=== PATIENT | female | born 1965 | race Hispanic/Latino ===

== ENCOUNTER 2019-02-03 16:18 | Observation (INO) | payer SELFPAY ==
[2019-02-03 16:46] LABS: Bilirubin Negative (Negative); Blood, Urine Negative (Negative); Clarity Clear (Clear); Glucose, Urine (Dipstick) Negative (Negative); Leukocyte Small (Negative); Nitrite Negative (Negative); Protein, Urine (Dipstick) 100 mg/dL (Neg-Trace); Urobilinogen 0.2 mg/dL (0.2-1.0)
[2019-02-03 16:55] LABS: Bacteria/HPF Rare-Few HPF (None Seen); Hyaline Casts/LPF NONE SEEN LPF (0-3 Hyaline); RBC/HPF None Seen HPF (0-3)
[2019-02-03 17:02] LABS: Mean Corpuscular HGB CONC 33.3 g/dL (32.0-36.0); Mean Corpuscular Hemoglobin 27.2 pg (27.0-31.0); Mean Corpuscular Volume 81.6 fL (78.0-98.0); Mean Platelet Volume 7.8 fL (7.4-10.4); Platelet Count 340 thou/uL (130-400); RBC Distribution Width 12.3 % (11.5-14.5); Red Blood Cell (RBC) Count 4.78 mill/uL (4.20-5.40); White Blood Cell (WBC) Count 16.5 thou/uL (4.8-10.8)
[2019-02-03] MEDS ORDERED: Ondansetron PF 4 MG/2 ML Vial ONE (17:09)
[2019-02-03] MEDS ORDERED: Morphine 4 MG/ML VIAL ONE (17:09)
[2019-02-03 17:22] LABS: ALT (SGPT) 24 U/L (8-55); AST (SGOT) 24 U/L (5-34); Albumin 4.3 g/dL (3.5-5.0); Alkaline Phosphatase 211 U/L (40-150); Anion Gap 13 mmol/L (10-20); BUN (Urea Nitrogen) 14 mg/dL (9.8-20.1); Band 3 % (5-11); Bilirubin, Total 0.4 mg/dL (0.2-1.2); Calc. Creatinine Clearance 0 mL/min (70-130); Calcium 10.5 mg/dL (7.8-10.44); Carbon Dioxide 25 mmol/L (22-29); Chloride 103 mmol/L (98-107); Eosinophils 1 % (0-10); Estimated GFR-MDRD Greater than 90; Globulin 4.7 g/dL (2.4-3.5); Glucose 122 mg/dL (70-105); Lymphocytes 63 % (21-51); MDiff Complete? YES; Monocytes 4 % (0-10); Neutrophil 26 % (42-75); Platelet Morphology Comment Appears Adequate; Potassium 4.3 mmol/L (3.5-5.1); Reactive Lymphocytes 3 % (0-10); Sodium 137 mmol/L (136-145)
--- NOTE | 2019-02-03 17:48 | CT ---
CT ABDOMEN AND PELVIS WITHOUT CONTRAST: 02/03/19 COMPARISON: Ultrasound of the gallbladder 12/29/18. HISTORY: Abdominal pain for four days. TECHNIQUE: Multiple contiguous axial images were obtained in a CT of the abdomen and pelvis without contrast. Co delfina reformats were performed. FINDINGS: The gallbladder is distended and there is apparent gallbladder wall thickening. No obvious stranding changes are seen adjacent to the gallbladder. The liver, kidneys, adrenal glands, spleen, and pancrea s are unremarkable, although evaluation is limited without IV contrast. There is a 3.3 cm right adnexal mass containing a calcification and fat. This likely represents a mat ure cystic teratoma. The left ovary and uterus are unremarkable. There is scattered diverticula in th e colon. The small bowel is unremarkable. The appendix is normal. No abdominal or pelvic lymphadenopa thy are seen. Degenerative changes are seen in the spine. The visualized inferior thorax and abdominal wall soft ti ssues are unremarkable. IMPRESSION: 1. Distended gallbladder. This could be secondary to acute cholecystitis given the history of ga llstones. Correlate with LFTs. 2. 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 3. Diverticulosis. POS: C
--- NOTE | 2019-02-03 18:06 | ULT ---
RIGHT UPPER QUADRANT ABDOMINAL ULTRASOUND 02/03/19 COMPARISON: CT abdomen/pelvis 02/03/19 and ultrasound 12/29/18. HISTORY: Abdominal pain. History of gallstones. Evaluate for acute cholecystitis. TECHNIQUE: Multiplanar salazar scale and color Doppler images were obtained in a right upper quadrant abdominal ult rasound. FINDINGS: The gallbladder is distended and filled with multiple stones. No pericholecystic fluid is seen. The g allbladder wall is upper limits of normal on this examination. The common bile duct is normal measuri ng 3 mm. The visualized portions of the pancreas are unremarkable. The right kidney is normal in echogenicity without hydronephrosis or calculus and measures 11.7 cm in length. IMPRESSION: Cholelithiasis with distended gallbladder. POS: [facility]
[2019-02-03] MEDS ORDERED: Piperacillin/Tazobactam 4.5 GM VIAL ONE (18:50)
[2019-02-03] MEDS ORDERED: Piperacillin/Tazobactam 4.5 GM in Sodium Chloride 0.9% 100 ML IVPB SCH (19:15)
[2019-02-03 19:54] LABS: PTT 28.2 SEC (22.9-36.1); Prothrombin Time 13.1 SEC (12.0-14.7)
[2019-02-03] MEDS ORDERED: Ondansetron ODT 4 MG TAB SL PRN (20:49)
[2019-02-03] MEDS ORDERED: Ondansetron PF 4 MG/2 ML Vial IVP PRN (20:49)
[2019-02-03] MEDS ORDERED: HYDROcodone/Acetaminophen 5/325 mg Tablet PO PRN ×2 (20:49)
[2019-02-03] MEDS ORDERED: Morphine 4 MG/ML VIAL SLOW IVP PRN (20:51)
[2019-02-03 21:22] VITALS: BMI 37.9
[2019-02-03] MEDS: Lactated Ringer's 1,000 ML IV SCH (21:33)
[2019-02-04] MEDS ORDERED: Piperacillin/Tazobactam 4.5 GM in Sodium Chloride 0.9% 100 ML IVPB SCH (04:00)
[2019-02-04] MEDS: Lactated Ringer's 1,000 ML IV SCH (04:35)
[2019-02-04 04:58] LABS: #Basophils 0.1 thou/uL (0.0-0.2); #Eosinphils 0.1 thou/uL (0.0-0.7); #Lymphocytes 5.2 thou/uL (1.20-3.40); #Monocytes 0.8 thou/uL (0.11-0.59); #Neutrophils 6.7 thou/uL (1.40-6.50); %Basophils 0.8 % (0.0-1.0); %Eosinophils 0.8 % (0.0-10.0); %Lymphocytes 40.7 % (21.0-51.0); %Monocytes 5.9 % (0.0-10.0); %Neutrophils 51.8 % (42.0-75.0); Hemoglobin 11.1 g/dL (12.0-16.0); Mean Corpuscular HGB CONC 33.3 g/dL (32.0-36.0); Mean Corpuscular Hemoglobin 27.7 pg (27.0-31.0); Platelet Count 269 thou/uL (130-400); RBC Distribution Width 12.4 % (11.5-14.5); Red Blood Cell (RBC) Count 4.01 mill/uL (4.20-5.40); White Blood Cell (WBC) Count 12.9 thou/uL (4.8-10.8)
[2019-02-04 05:22] LABS: ALT (SGPT) 40 U/L (8-55); AST (SGOT) 45 U/L (5-34); Albumin 3.6 g/dL (3.5-5.0); Alkaline Phosphatase 210 U/L (40-150); Anion Gap 10 mmol/L (10-20); BUN (Urea Nitrogen) 12 mg/dL (9.8-20.1); Bilirubin, Total 0.4 mg/dL (0.2-1.2); Calc. Creatinine Clearance 162 mL/min (70-130); Calcium 9.5 mg/dL (7.8-10.44); Carbon Dioxide 28 mmol/L (22-29); Chloride 104 mmol/L (98-107); Estimated GFR-MDRD Greater than 90; Globulin 3.7 g/dL (2.4-3.5); Glucose 128 mg/dL (70-105); Potassium 3.9 mmol/L (3.5-5.1); Protein, Total 7.3 g/dL (6.0-8.3); Sodium 138 mmol/L (136-145)
[2019-02-04] MEDS ORDERED: Morphine 4 MG/ML VIAL SLOW IVP PRN ×3 (15:30→16:56)
[2019-02-04] MEDS ORDERED: Promethazine HCl 25 MG/ML VIAL IM PRN (16:56)
[2019-02-04] MEDS ORDERED: Mag-Al 1200 mg/1200 mg/30 ML UDCUP PO PRN (16:56)
[2019-02-04] MEDS ORDERED: HumaLOG 300 UNITS/3 ML VIAL SC PRN (16:56)
[2019-02-04] MEDS ORDERED: Dextrose 50% Abboject 50 ML SYRINGE SLOW IVP PRN (16:56)
[2019-02-04] MEDS ORDERED: Ondansetron PF 4 MG/2 ML Vial IVP PRN (16:56)
[2019-02-04] MEDS ORDERED: hydrALAZINE 20 MG/ML VIAL SLOW IVP PRN (16:56)
[2019-02-04] MEDS ORDERED: Calcium Carbonate 500 MG ChewTAB PO PRN (16:56)
[2019-02-04] MEDS ORDERED: HYDROcodone/Acetaminophen 10/325 mg Tablet PO PRN (16:56)
[2019-02-04] MEDS ORDERED: Dextrose 5% in Water 1,000 ML IV PRN (16:56)
[2019-02-04] MEDS: Famotidine/PF 20 mg/2ml Vial SLOW IVP SCH (20:56)
[2019-02-04] MEDS: Famotidine 20 MG TAB PO SCH (20:57)
[2019-02-04] MEDS: cefOXitin Sodium/Dextrose,Iso 2 GM in Premix Bag 1 BAG IVPB SCH (21:58)
--- NOTE | 2019-02-04 23:41 | HP ---
CHIEF COMPLAINT: Upper abdominal pain. HISTORY OF PRESENT ILLNESS: This is a 53-year-old, presents with acute cholecystitis, complains of upper abdominal pain, more in the right upper quadrant. Ultrasound shows gallstones, normal common bile duct. Minimal elevation of her liver tests, but her bilirubin is normal. She has had similar symptoms in the past, but not so severe. PAST MEDICAL HISTORY: Includes dyslipidemia and diabetes mellitus. PAST SURGICAL HISTORY: Includes hysterectomy, , incisional hernia repair with mesh. MEDICINES: Include statin and metformin. ALLERGIES: SUTURE. SOCIAL HISTORY: No smoking, alcohol, or other drugs. REVIEW OF SYSTEMS: A 10-system review of system is otherwise negative as described above. PHYSICAL EXAMINATION: VITAL SIGNS: Blood pressure is 117/79, pulse 63, respirations 16. She is afebrile. HEENT: Sclerae are anicteric. Oropharynx is clear. NECK: No lymphadenopathy. CHEST: Clear. HEART: Regular rate and rhythm. ABDOMEN: Soft in the right upper quadrant with localized guarding, no rebound. No abdominal hernias. EXTREMITIES: No ischemia or edema to extremities. LABORATORY DATA: White blood cell count is 12, hemoglobin is 11. Sodium is 138, potassium 3.9, creatinine 0.63, bilirubin normal, but her AST is a little bit elevated at 45. Lipase 61. Ultrasound, gallstones and normal common bile duct. ASSESSMENT: Acute cholecystitis with elevation of liver tests. PLAN: Laparoscopic cholecystectomy with intraoperative cholangiogram. Risks, benefits, and alternatives were discussed, she gives consent. We will do this tomorrow due to lack of OR availability. Job ID: [id number]
[2019-02-05] MEDS: cefOXitin Sodium/Dextrose,Iso 2 GM in Premix Bag 1 BAG IVPB SCH (06:15)
[2019-02-05 06:41] LABS: #Basophils 0.1 thou/uL (0.0-0.2); #Eosinphils 0.1 thou/uL (0.0-0.7); #Lymphocytes 5.5 thou/uL (1.20-3.40); #Monocytes 0.7 thou/uL (0.11-0.59); #Neutrophils 7.7 thou/uL (1.40-6.50); %Basophils 0.5 % (0.0-1.0); %Eosinophils 0.9 % (0.0-10.0); %Monocytes 5.1 % (0.0-10.0); %Neutrophils 54.5 % (42.0-75.0); Hemoglobin 12.1 g/dL (12.0-16.0); Mean Corpuscular HGB CONC 32.1 g/dL (32.0-36.0); Mean Corpuscular Hemoglobin 26.8 pg (27.0-31.0); Mean Corpuscular Volume 83.5 fL (78.0-98.0); Mean Platelet Volume 7.8 fL (7.4-10.4); Platelet Count 339 thou/uL (130-400); RBC Distribution Width 12.5 % (11.5-14.5); Red Blood Cell (RBC) Count 4.52 mill/uL (4.20-5.40); White Blood Cell (WBC) Count 14.1 thou/uL (4.8-10.8)
[2019-02-05 07:05] LABS: ALT (SGPT) 72 U/L (8-55); AST (SGOT) 57 U/L (5-34); Alkaline Phosphatase 293 U/L (40-150); Anion Gap 13 mmol/L (10-20); BUN (Urea Nitrogen) 8 mg/dL (9.8-20.1); Bilirubin, Total 0.6 mg/dL (0.2-1.2); Calc. Creatinine Clearance 157 mL/min (70-130); Calcium 10.1 mg/dL (7.8-10.44); Carbon Dioxide 26 mmol/L (22-29); Chloride 104 mmol/L (98-107); Estimated GFR-MDRD Greater than 90; Globulin 4.5 g/dL (2.4-3.5); Glucose 143 mg/dL (70-105); Protein, Total 8.5 g/dL (6.0-8.3); Sodium 139 mmol/L (136-145)
[2019-02-05] MEDS: Famotidine/PF 20 mg/2ml Vial SLOW IVP SCH (09:08)
[2019-02-05] MEDS: Famotidine 20 MG TAB PO SCH (09:09)
[2019-02-05] MEDS ORDERED: Bupivacaine/Epinephrine 0.25% 30 ML VIAL ONE (10:59)
[2019-02-05] MEDS ORDERED: Iothalamate Meglumine 60% 50 ML VIAL FS ONE (10:59)
[2019-02-05] MEDS ORDERED: Fentanyl 100 MCG/2 ML VIAL ONE ×2 (11:16→13:21)
[2019-02-05] MEDS ORDERED: Meperidine HCl/PF 25 MG/ML VIAL SLOW IVP PRN (13:11)
[2019-02-05] MEDS ORDERED: Promethazine HCl 25 MG/ML VIAL SLOW IVP PRN (13:11)
[2019-02-05] MEDS ORDERED: Promethazine HCl 25 MG/ML VIAL IM PRN ×2 (13:11→13:27)
[2019-02-05] MEDS ORDERED: Ondansetron HCl/PF 4 MG/2 ML Vial IVP PRN (13:11)
[2019-02-05] MEDS ORDERED: Ondansetron PF 4 MG/2 ML Vial ONE (13:12)
[2019-02-05] MEDS ORDERED: Dextrose 50% Abboject 50 ML SYRINGE SLOW IVP PRN (13:27)
[2019-02-05] MEDS ORDERED: Dextrose 5% in Water 1,000 ML IV PRN (13:27)
[2019-02-05] MEDS ORDERED: Mag-Al 1200 mg/1200 mg/30 ML UDCUP PO PRN (13:27)
[2019-02-05] MEDS ORDERED: HYDROcodone/Acetaminophen 10/325 mg Tablet PO PRN ×2 (13:27)
[2019-02-05] MEDS ORDERED: Morphine 4 MG/ML VIAL SLOW IVP PRN (13:27)
[2019-02-05] MEDS ORDERED: Ondansetron PF 4 MG/2 ML Vial IVP PRN (13:27)
[2019-02-05] MEDS ORDERED: Calcium Carbonate 500 MG ChewTAB PO PRN (13:27)
[2019-02-05] MEDS ORDERED: hydrALAZINE 20 MG/ML VIAL SLOW IVP PRN (13:27)
[2019-02-05] MEDS ORDERED: Morphine 2 MG/ML SYRINGE SLOW IVP PRN (13:52)
--- NOTE | 2019-02-05 14:32 | RAD ---
EXAM: XR Cholangiogram in Surgery PROVIDED CLINICAL HISTORY: Cholelithiasis and distended gallbladder. Patient is post cholecystectomy. COMPARISON: None Fluoroscopy: Total fluoroscopy time is 13 seconds with total dose of 0.794 Gy centimeter squared FINDINGS/IMPRESSION: 2 intraoperative fluoroscopic images of the right upper quadrant are submitted for interpretation. Mu ltiple surgical instruments overlie the right upper quadrant. The cystic duct is cannulated. There is opacification of the common duct and right hepatic ducts without definitive filling defect or bili esau duct dilatation appreciated. There is evidence of free spill of contrast into the duodenum. Correlation with intraoperative findings is recommended.
[2019-02-05 17:39] VITALS: BP 95/61; TEMP 98.4
[2019-02-05] MEDS ORDERED: Famotidine 20 MG TAB PO SCH (21:00)
[2019-02-05] MEDS ORDERED: Famotidine/PF 20 mg/2ml Vial SLOW IVP SCH (21:00)
--- NOTE | 2019-02-06 00:49 | OP ---
DATE OF PROCEDURE: 02/05/2019 PREOPERATIVE DIAGNOSIS: Acute cholecystitis. POSTOPERATIVE DIAGNOSIS: Acute cholecystitis. PROCEDURES PERFORMED: Laparoscopic cholecystectomy, intraoperative cholangiogram, placement of 10-[place] abdominal drain. ANESTHESIA: General. ESTIMATED BLOOD LOSS: Minimal. COMPLICATIONS: None. SPECIMEN: None. FINDINGS: Severe cholecystitis. DESCRIPTION OF PROCEDURE: The patient was taken to the operating room and laid supine on the operating room table. After general anesthesia was obtained, the abdomen was prepped and draped in sterile fashion. A left subcostal 5 mm Optiview trocar was placed. High-flow pneumoperitoneum was obtained. The 12 mm port site was placed above the umbilicus. Three right upper quadrant 5 mm ports were placed under direct visualization. The patient's gallbladder was completely encased in solid as one large stone. This made the dissection difficult. The critical view triangle was seen showing only the cystic duct and the cystic artery branching medial to lateral with no other branching structures. A clip was placed on the cystic duct. A small ductotomy was made just proximal to that. A cholangiocatheter was brought in through a separate stab incision and a cholangiogram was performed, which showed good contrast flow into the duodenum without obstruction. The cholangiocatheter was removed and 2 clips and an Endoloop were used to ligate the cystic duct proximally. The cystic artery was taken using a clip proximally and cauterized distally. Cautery was used to dissect out the gallbladder out of the gallbladder fossa. The gallbladder was placed in an EndoCatch bag. This was brought out through the supraumbilical incision at the end of the procedure. There was oozing in the liver bed. This was controlled with cautery and Kaykay and bleeding starch. A 19 round drain was brought out through the right upper quadrant incision and left in the gallbladder fossa secondary to the significant inflammatory change. It was sewn to the skin using 2-0 silk suture. All ports were removed under camera visualization. Pneumoperitoneum was let down. PDS was used to close the subfascial defect above the umbilicus. All incisions were irrigated and closed using 4-0 Monocryl and Dermabond. The patient was sent to Recovery in stable condition. All instrument counts, needle counts, and lap counts were correct. Job ID: [id number]
--- NOTE | 2019-02-06 14:05 | EKG ---
Test Reason : Blood Pressure : / mmHG Vent. Rate : 106 BPM Atrial Rate : 106 BPM P-R Int : 186 ms QRS Dur : 090 ms QT Int : 342 ms P-R-T Axes : 043 -46 058 degrees QTc Int : 454 ms Sinus tachycardia Possible Left atrial enlargement Left axis deviation Left ventricular hypertrophy Possible Lateral infarct , age undetermined Inferior infarct , age undetermined Abnormal ECG Confirmed by RANCHO JACOBSEN DO ([id number]), editor city [place]ST[place] ARMSTRONG ([id number]) on 02/06/2019 2:05:02 PM Referred By: Confirmed By:RANCHO JACOBSEN DO
== END 2019-02-05 18:07 | disposition home or self-care (01) ==
LOC: ERS 16:18 → T4-B 20:38
PROVIDERS: ADMIT Surgery; ATTEND Surgery
PROC: 0FT44ZZ Resection of Gallbladder, Percutaneous Endoscopic Approach (ICD-10-PCS; principal; 2019-02-05)
PROC: BF131ZZ Fluoroscopy of Gallbladder and Bile Ducts using Low Osmolar Contrast (ICD-10-PCS; 2019-02-05)
DX: K80.12 Calculus of gallbladder with acute and chronic cholecystitis without obstruction (principal); E11.9 Type 2 diabetes mellitus without complications; E78.5 Hyperlipidemia, unspecified; Z79.84 Long term (current) use of oral hypoglycemic drugs; Z79.899 Other long term (current) drug therapy; Z91.048 Other nonmedicinal substance allergy status
CPT/HCPCS: 36415; 36416; 47532; 74176; 76705; 80053; 81003; 81015; 83690; 85025; 85610; 85730; 88304; 93005; 96361; 96365; 96366; 96375; 96376; G0378; J0694; J2270; J2405; J2543; J3010; J3490; S0028

== ENCOUNTER 2019-02-21 17:10 | Inpatient (IN) | payer SELFPAY ==
[~2019-02-21 17:10] MED LIST: Iopamidol 370 76% 100 ML VIAL ONE
[2019-02-21] MEDS ORDERED: Morphine 4 MG/ML VIAL ONE (17:56)
[2019-02-21] MEDS ORDERED: Ondansetron PF 4 MG/2 ML Vial ONE (17:56)
[2019-02-21 18:28] LABS: Hemoglobin 10.7 g/dL (12.0-16.0); Mean Corpuscular HGB CONC 31.2 g/dL (32.0-36.0); Mean Corpuscular Hemoglobin 26.3 pg (27.0-31.0); Mean Corpuscular Volume 84.3 fL (78.0-98.0); Mean Platelet Volume 7.8 fL (7.4-10.4); Platelet Count 567 thou/uL (130-400); RBC Distribution Width 12.3 % (11.5-14.5); Red Blood Cell (RBC) Count 4.09 mill/uL (4.20-5.40); White Blood Cell (WBC) Count 21.4 thou/uL (4.8-10.8)
[2019-02-21 18:40] LABS: Band 6 % (5-11); Eosinophils 2 % (0-10); Hypochromia SLIGHT = 6-15 cells (100X) (0-5/hpf); Lymphocytes 23 % (21-51); MDiff Complete? YES; Monocytes 8 % (0-10); Neutrophil 61 % (42-75); Platelet Morphology Comment Appears Increased; Polychromasia SLIGHT = 2-3 cells (100X) (0-2/hpf)
[2019-02-21 18:50] LABS: ALT (SGPT) 43 U/L (8-55); AST (SGOT) 23 U/L (5-34); Albumin 3.7 g/dL (3.5-5.0); Alkaline Phosphatase 507 U/L (40-150); Anion Gap 17 mmol/L (10-20); BUN (Urea Nitrogen) 9 mg/dL (9.8-20.1); Bilirubin, Total 0.4 mg/dL (0.2-1.2); Calc. Creatinine Clearance 0 mL/min (70-130); Calcium 10.1 mg/dL (7.8-10.44); Carbon Dioxide 24 mmol/L (22-29); Chloride 98 mmol/L (98-107); Estimated GFR-MDRD Greater than 90; Globulin 4.9 g/dL (2.4-3.5); Glucose 201 mg/dL (70-105); Lipase 19 U/L (8-78); Potassium 3.9 mmol/L (3.5-5.1); Protein, Total 8.6 g/dL (6.0-8.3); Sodium 135 mmol/L (136-145)
[2019-02-21] MEDS ORDERED: Piperacillin/Tazobactam 4.5 GM VIAL ONE (19:07)
--- NOTE | 2019-02-21 19:46 | CT ---
EXAM: Abdomen and pelvic CT scan with contrast: HISTORY: Surgical wound drainage, fever. COMPARISON: 02/03/2019 FINDINGS: Mild volume loss is seen at lung bases. Liver: Mild periportal edema Gallbladder: Surgical absence of gallbladder. There is a complex fluid and mixed density of the gallb ladder fossa, with largest focal fluid density measuring 2.3 cm in dimension. Overlying the cholecystectomy site, there is a linear oriented tract which emanates from abnormally thickened and e dematous right lateral abdominal wall musculature to the skin surface indicating an infected tract. Pancreas: Unremarkable Spleen: Unremarkable. Adrenal glands: Unremarkable. Kidneys: No renal calculus or acute obstruction. No solid or cystic mass. Bowel: No evidence for bowel obstruction. Urinary Bladder: The urinary bladder is unremarkable. Adenopathy: No adenopathy within the abdomen or pelvis. Free Air: No free air. Ascites: Mild scattered free fluid Osseous structures: No acute osseous abnormalities. IMPRESSION: Complex fluid density with inflammatory edema of the gallbladder fossa which may relate to developing postoperative abscess given the prominent overlying perioperative edema, abnormal abdominal wall thickening and complex fluid density tract of the anterolateral right abdominal wall. Transcribed Date/Time: 02/21/2019 8:05 PM
[2019-02-21 22:24] LABS: Lactic Acid 1.2 mmol/L (0.5-2.2)
[2019-02-21] MEDS ORDERED: Ondansetron PF 4 MG/2 ML Vial IVP PRN (23:46)
[2019-02-21] MEDS ORDERED: Ondansetron ODT 4 MG TAB SL PRN (23:46)
[2019-02-21] MEDS ORDERED: Morphine 4 MG/ML VIAL SLOW IVP PRN (23:48)
[2019-02-22 00:57] VITALS: BMI 38.2
[2019-02-22] MEDS ORDERED: Piperacillin/Tazobactam 4.5 GM in Sodium Chloride 0.9% 100 ML IVPB SCH (02:00)
[2019-02-22] MEDS ORDERED: HYDROcodone/Acetaminophen 7.5/325 mg Tablet PO PRN ×2 (10:44)
[2019-02-22] MEDS ORDERED: traMADol HCl 50 MG TAB PO PRN ×2 (10:44→17:44)
[2019-02-22] MEDS ORDERED: Morphine 4 MG/ML VIAL SLOW IVP PRN (10:44)
[2019-02-22] MEDS ORDERED: Ondansetron PF 4 MG/2 ML Vial IVP PRN (10:46)
[2019-02-22] MEDS ORDERED: Morphine 2 MG/ML SYRINGE SLOW IVP PRN (10:55)
[2019-02-22] MEDS: traMADol HCl 50 MG TAB PO PRN ×2 (12:35→18:22)
[2019-02-22] MEDS: Piperacillin/Tazobactam 3.375 GM in Sodium Chloride 0.9% 100 ML IVPB SCH ×2 (12:37→18:13)
[2019-02-22] MEDS ORDERED: Dextrose 5% in Water 1,000 ML IV PRN (17:52)
[2019-02-22] MEDS ORDERED: Dextrose 50% Abboject 50 ML SYRINGE SLOW IVP PRN (17:52)
[2019-02-22] MEDS: Atorvastatin Calcium 40 MG TAB PO SCH (20:26)
--- NOTE | 2019-02-22 21:52 | HP ---
CHIEF COMPLAINT: Abdominal drainage. HISTORY OF PRESENT ILLNESS: Ms. Molly Vanegas is a 53-year-old woman, who is status post laparoscopic cholecystectomy with intraoperative cholangiogram on 02/05/[address] Weaver. She has severe cholecystitis and had a drain placed. This was removed in clinic earlier this week, and she has not really had any drainage from the site since then. However, on the day of admission, she began to drain a large amount of purulent looking fluid from the site. She also reports one episode of fever and chills up to temperature of 103. She was not really having any pain at the site until this morning, but is now having more discomfort at the incision site. PAST MEDICAL HISTORY: Hyperlipidemia and diabetes. PAST SURGICAL HISTORY: , hernia repair, and laparoscopic cholecystectomy with intraoperative cholangiogram. SOCIAL HISTORY: The patient does not smoke, drink, or use illicit drugs. She is here with family and is primarily [place]ian speaking. ALLERGIES: SHE HAS NO KNOWN DRUG ALLERGIES. OUTPATIENT MEDICATIONS: Include: 1. Lipitor 40 mg p.o. daily. 2. Janumet mg p.o. b.i.d. REVIEW OF SYSTEMS: Ten-system review of systems is negative except per HPI and the headache. FAMILY HISTORY: Noncontributory. PHYSICAL EXAMINATION: VITAL SIGNS: The patient has been afebrile since her admission. Heart rate 70, respirations 16, 91% saturated on room air, and blood pressure 110/76. GENERAL: Reveals a healthy-appearing woman, in no acute distress. She is not flushed or toxic in appearance. She is not diaphoretic. She is not jaundiced or icteric. HEENT: Unremarkable. NECK: Supple without lymphadenopathy. HEART: Regular in its rate and rhythm without murmurs, rubs, or gallops. LUNGS: Clear to auscultation. ABDOMEN: Soft and nondistended. Incisions are healing. She is tender to palpation in the right upper quadrant near her drain site, and she has some slightly cloudy serous fluid coming from the TAMIKO sites. On probing, there is no undrained fluid encountered, but the tract is open down to the level of the fascia about [address] images are reviewed and I agree with the written report. She has some stranding in the soft tissues, but no distinct abscess. She also has some mixed soft tissue and liquid density in the gallbladder fossa, which is likely postoperative given the use of Kaykay and other materials for intraoperative bleeding. ASSESSMENT: Suspected wound infection at old drain site. However, bile leak or intraabdominal abscess is not entirely excluded. The patient has been admitted for IV antibiotics. I feel the changes in the gallbladder fossa are most consistent with postoperative, but I have ordered a HIDA scan for the morning to evaluate for possible bile leak, which would require further treatment. I have asked the wound care team to pack her drain site, but currently they does not appear to be any undrained abscess. Repeat labs ordered for the morning. Job ID: [id number]
[2019-02-23] MEDS: Piperacillin/Tazobactam 3.375 GM in Sodium Chloride 0.9% 100 ML IVPB SCH ×5 (00:49→23:04)
[2019-02-23] MEDS: traMADol HCl 50 MG TAB PO PRN ×2 (00:54→06:02)
[2019-02-23] MEDS: Insulin Regular 300 UNITS/3 ML VIAL SC PRN ×2 (05:20→11:31)
--- NOTE | 2019-02-23 08:26 | NM ---
Radionucleotide hepatobiliary scan. HISTORY: Right upper quadrant pain. Recent cholecystectomy. Evaluate for biliary leak. FINDINGS: Physiologic uptake of radiotracer throughout the hepatic parenchyma. Uptake apparent within the biliary system and proximal bowel. No abnormal uptake over the gallbladder fossa. IMPRESSION: No evidence of biliary leak. Status post cholecystectomy. Common duct is patent.
[2019-02-23] MEDS: Alogliptin 25 MG TAB PO SCH ×2 (09:25→18:06)
[2019-02-23] MEDS: metFORMIN 500 MG TAB PO SCH ×2 (09:25→18:06)
--- NOTE | 2019-02-23 09:59 | PRG ---
DATE OF SERVICE: 02/23/2019 SUBJECTIVE: The patient reports that she is feeling better, less pain. She is tolerating a regular diet. No nausea or vomiting. She had a HIDA scan today showing no leak. OBJECTIVE: VITAL SIGNS: Her temperature is 98, pulse 66, blood pressure 114/78. ABDOMEN: The right upper quadrant wound looks better. There is minimal drainage. The dressing is changed. ASSESSMENT: Staphylococcus infection of abdominal wall. PLAN: Continue antibiotics. Job ID: [id number]
[2019-02-23] MEDS: Atorvastatin Calcium 40 MG TAB PO SCH (19:54)
[2019-02-24] MEDS: Piperacillin/Tazobactam 3.375 GM in Sodium Chloride 0.9% 100 ML IVPB SCH ×4 (05:52→23:11)
[2019-02-24] MEDS: Insulin Regular 300 UNITS/3 ML VIAL SC PRN ×3 (05:52→17:08)
[2019-02-24] MEDS ORDERED: Magnesium Citrate 300 ML BOT PO SCH (08:00)
[2019-02-24] MEDS ORDERED: Fleet Enema 133 ML BOT PR SCH (08:00)
[2019-02-24 09:12] LABS: #Basophils 0.1 thou/uL (0.0-0.2); #Eosinphils 0.6 thou/uL (0.0-0.7); #Lymphocytes 4.2 thou/uL (1.20-3.40); #Neutrophils 9.7 thou/uL (1.40-6.50); %Basophils 0.5 % (0.0-1.0); %Eosinophils 3.9 % (0.0-10.0); %Lymphocytes 26.7 % (21.0-51.0); %Monocytes 6.7 % (0.0-10.0); %Neutrophils 62.3 % (42.0-75.0); Hemoglobin 10.8 g/dL (12.0-16.0); Mean Corpuscular HGB CONC 33.2 g/dL (32.0-36.0); Mean Corpuscular Hemoglobin 27.7 pg (27.0-31.0); Mean Corpuscular Volume 83.4 fL (78.0-98.0); Mean Platelet Volume 7.3 fL (7.4-10.4); Platelet Count 471 thou/uL (130-400); RBC Distribution Width 12.2 % (11.5-14.5); Red Blood Cell (RBC) Count 3.92 mill/uL (4.20-5.40); White Blood Cell (WBC) Count 15.6 thou/uL (4.8-10.8)
--- NOTE | 2019-02-24 09:43 | PRG ---
DATE OF SERVICE: 02/24/2019 SUBJECTIVE: The patient states that her pain is much better. Her main complaint is constipation. She had a small bowel movement on Saturday, but she feels she needs to go. OBJECTIVE: VITAL SIGNS: Temperature 98.7, pulse 73, and blood pressure 117/77. GENERAL: She looks good. LUNGS: Clear. HEART: Regular rate and rhythm. ABDOMEN: Obese and soft. The wound was re-dressed. There is very minimal drainage of any from the wound on her right upper quadrant. She has some left lower quadrant tenderness. ASSESSMENT: Constipation. PLAN: Fleet enema, magnesium citrate, possible discharge later today. Job ID: [id number]
[2019-02-24] MEDS: Alogliptin 25 MG TAB PO SCH ×2 (09:48→17:08)
[2019-02-24] MEDS: metFORMIN 500 MG TAB PO SCH ×2 (09:48→17:08)
[2019-02-24] MEDS: Atorvastatin Calcium 40 MG TAB PO SCH (20:57)
[2019-02-25] MEDS: Piperacillin/Tazobactam 3.375 GM in Sodium Chloride 0.9% 100 ML IVPB SCH ×2 (05:18→12:21)
[2019-02-25] MEDS: metFORMIN 500 MG TAB PO SCH (08:55)
[2019-02-25] MEDS: Alogliptin 25 MG TAB PO SCH (08:55)
[2019-02-25 11:30] VITALS: BP 126/81; TEMP 98.4
--- NOTE | 2019-02-25 12:48 | DIS ---
DATE OF ADMISSION: 02/21/2019 DATE OF DISCHARGE: 02/25/2019 DISCHARGE DIAGNOSIS: Postop wound infection from laparoscopic cholecystectomy. PROCEDURES DURING ADMISSION: Local wound care, IV antibiotics. HOSPITAL COURSE: The patient was admitted. Given IV antibiotics. Cultures grew out Staphylococcus. She was treated with IV antibiotics. She responded well. She had local wound care as the incision was already open and had daily dressing changes that is no longer draining, that is no longer tender, no longer erythematous. No fever. She feels better. She is tolerating a regular diet. She is discharged home on Bactrim and doxycycline. She will follow up with Dr. Weaver in 1 week. Job ID: [id number]
== END 2019-02-25 13:54 | disposition home or self-care (01) | DRG 863 ==
LOC: ERS 17:10 → SURG B 23:29
PROVIDERS: ADMIT Surgery; ATTEND Surgery
DX: T81.43XA Infection following a procedure, organ and space surgical site, initial encounter (principal); L02.211 Cutaneous abscess of abdominal wall; B95.8 Unspecified staphylococcus as the cause of diseases classified elsewhere; Y83.9 Surgical procedure, unspecified as the cause of abnormal reaction of the patient, or of later complication, without mention of misadventure at the time of the procedure; K59.00 Constipation, unspecified; E11.9 Type 2 diabetes mellitus without complications; E78.00 Pure hypercholesterolemia, unspecified; E78.5 Hyperlipidemia, unspecified; Z90.49 Acquired absence of other specified parts of digestive tract; Z79.899 Other long term (current) drug therapy; Z79.84 Long term (current) use of oral hypoglycemic drugs
CPT/HCPCS: 36415; 36416; 74177; 78226; 80053; 83605; 83690; 85025; 87040; 87070; 87077; 87186; 87205; 90471; 90732; 93005; 96361; 96365; 96375; A9537; G0009; J1815; J2270; J2405; J2543; J3490; Q9967